=== PATIENT | female | born 1960 | race Caucasian/White ===

== ENCOUNTER → 2016-12-17 | Outpatient (CLI) | payer MEDICARE, OTHER ==
[~2016-12-17] MED LIST: ACETAMINOPHEN325 MG PO; ADVAIR 100-501 EAC1 IH; ADVAIR 100-501 EACH IH; ADVAIR 100-501 EACH INH; ADVAIR 1001 DISK W/D PO; ADVAIR 250-501 EAC1 IH; ADVAIR 5001 DISK W/2 IH; ALBUTEROL MININEB NEB; ALBUTEROL0.83 MG/ML IH; ALBUTEROL17 GM INH; ALLERCLEAR10 MG PO; ALLERGY RELIEF10 M1 PO; ALPRAZOLAM PO; ANTACID650 MG PO; ARTIFICIAL TEAR1 DRP OU; ATIVAN0.5 M1 PO; ATORVASTATIN CA10 MG PO; AUGMENTIN PO; AUGMENTIN875 MG PO; BACTRIM DS TABL1 TAB PO; BENZONATATE PO; CALCIUM CARBONA1 TAB PO; CALCIUM1 TAB.CHEW; CLARITIN10 M1 PO; CLARITIN10 M2 PO; CLARITIN10 M3 PO; CLEOCIN PO; CLONAZEPAM0.5 MG PO; CLOPIDOGREL75 MG PO; COGENTIN0.5 M1 PO; COGENTIN0.5 MG PO; COGENTIN1 MG PO; COLACE PO; DEPAKOTE; DEPAKOTE ER PO; DEPAKOTE PO; DEXILANT30 MG PO; DEXILANT60 MG PO; DUONEB 2.5-0.5 M3 ML NEB; FENTANYL1 PATCH .7 TOP; FERREX 150 FOR1 EACH PO; FLORASTORKIDS250 MG PO; FOLIC ACID PO; FOLIC ACID1 MG PO; FUROSEMIDE40 MG PO; GABAPENTIN300 M2 PO; GABAPENTIN300 MG PO; GUAIFENESIN W/CO5 ML PO; HYDROCHLOROTH12.5 M1 PO; HYDROCHLOROTH12.5 MG PO; HYDROCHLOROTHIA25 MG PO; HYDROCODON-ACE1 EAC1 PO; HYDROCODON-ACE1 EAC5 PO; HYDROCODON-ACE1 EAC7 PO; HYDROCODONE-A1 UDTA2 PO; JANUVIA PO; K-DUR20 ME1 PO; KAPIDEX30 MG PO; KEFLEX PO; KLONOPIN0.25 MG/TA PO; KLONOPIN0.5 MG PO; LASIX PO; LASIX20 MG PO; LEVOTHROID50 MCG PO; LEVOTHROID75 MCG PO; LEVOTHYROXINE50 MCG PO; LIDODERM30 EA TOP; LIPITOR PO; LIPITOR20 MG PO; LISINOPRIL PO; LISINOPRIL10 MG PO; LOPRESSOR PO; LORTAB 5/500 TA1 TA1 PO; MELATIN3 MG PO; MELATONIN1 M1 PO; METHOCARBAMOL500 MG PO; METHOTREXATE PO; METHOTREXATE2.5 MG PO; METHOTREXATE25 MG/M3 PO; METOPROLOL TAR25 MG PO; MINTOX MAXIMUM355 ML PO; MOBIC PO; MOBIC7.5 MG/5 M PO; MS CONTIN PO; MSIR15 MG PO; MULTI VITAMIN1 EACH PO; NAPROXEN PO; NEURONTIN PO; NIFEREX-150 FO150 MG PO; NORCO 10-325 TA1 TAB PO; NUEDEXTA 20-101 EACH PO; OMEPRAZOLE10 MG PO; OMEPRAZOLE20 M2 PO; OXAPROZIN600 MG PO; OXYCODONE HCL20 M1 PO; PANTOPRAZOLE SO40 MG PO; PAROXETINE HCL40 M1 PO; PATIENT'S PHARMACY; PAXIL30 MG PO; PERCOCET 10/3251 TAB PO; PERCOCET 5-3251 TAB PO; PERCOCET10 PO; PERCOCET5/325 PO; PHENERGAN25 M1 PO; PHENERGAN25 MG PO; PLAVIX PO; POTASSIUM CHLO10 ME1 PO; POTASSIUM CHLO10 MEQ PO; PREDNISONE PO; PRILOSEC PO; PRILOSEC20 M1 PO; PRILOSEC20 MG DOB; PROAIR HFA8.5 GM IH; PROVENTIL0.83 MG/ML IH; REMERON PO; REMERON15 MG PO; ROBITUSSIN A-C S5 ML PO; ROBITUSSIN100 MG/52 PO; SENOKOT S1 TA1 PO; SENOKOT S1 TAB PO; SEROQUEL PO; SEROQUEL XR150 MG PO; SEROQUEL50 M1 PO; SEROQUEL50 MG PO; SERTRALINE HCL100 M1 PO; SERTRALINE HCL100 MG PO; SILVADENE TOP; SIMVASTATIN20 MG PO; SINGULAIR PO; SODIUM BICARBO650 MG PO; SYMBICORT INH; SYMBICORT80 INH; SYNTHROID75 MCG PO; TEMAZEPAM30 MG; TESSALON PERLE100 M1 PO; THERAGRAN-M PRE1 TAB PO; THERAPEUTIC M PO; TOPIRAMATE100 MG PO; TRADJENTA5 MG PO; TREXALL10 MG PO; TREXALL5 MG PO; TREXALL7.5 MG PO; TUMS500 MG PO; TYL325 PO; TYLOX 5/500 CAP1 CAP PO; VISTARIL PO; VITAMIN C500 MG PO; VITAMIN D 22000 UNIT PO; VITAMIN D-32000 UNI1 PO; VITAMIN D2000 UNI1 PO; VITAMIN D22000 UNIT PO; VITAMIN D2400 UNIT PO; VITAMIN D31000 UNI1 PO; VITAMIN D31000 UNIT PO; VITAMIN E PO; VITAMIN E400 UNI1 PO; VOLTAREN75 MG PO; ZOCOR20 MG PO; ZOFRAN PO; ZOLOFT PO; ZOLOFT50 MG PO; ZYPREXA PO; ZYPREXA7.5 MG PO; [UNRECOGNIZED DRUG - OTHER] INH
--- NOTE | ~2016-12-17 | CT57 ---
[facility] A Service of [facility] RADIOLOGY TEXT RESULTS PATIENT: JESÚS SALVADOR LOCATION: [facility] : 56 UNIT #: [id number] AGE: [address]: So Solis MD SEX: F ORDER DR: [id number] [facility] [address] [place], [place] [address] [id number] O MR#: [id number] [facility] #: [id number] NAME: JESÚS SALVADOR : 1960 SEX: F STUDY DATE/TIME: 12/17/2016 14:58 UNIT: [facility] ROOM: STUDY DESCRIPTION: CT Chest Wo Cont Attending Physician: So Solis M.D. Referring Physician: So Solis M.D. Ordering Physician: So Solis M.D. Primary Care Physician: So Solis M.D. MEDICAL IMAGING REPORT This report is preliminary unless electronic signature is present EXAM CT of the chest without contrast. INDICATION 56-year-old female with a history of cough for [address] of the chest was performed without contrast. Coronal and sagittal reformatted images obtained. This CT exam was performed with one or more of the following radiation dose reduction techniques: automatic exposure control, adjustment of mA and/or kV according to patient size, and iterative reconstruction. COMPARISON STUDIES Comparison with 07/10/2012. FINDINGS There is diffuse tree-in-bud nodularity throughout the right lower lobe. There is band-like atelectasis or scar in the right middle lobe and minimal bandlike atelectasis or scar in the right lower lobe. There is band-like atelectasis within the left lower lobe and some scattered tree-in-bud nodularity in the left lower lobe. No obvious suspicious lymphadenopathy. However, the upper mediastinum is obscured by streak artifact from the patient's shoulder arthroplasties. There is a moderate sized hiatal hernia. Limited imaging in the upper abdomen demonstrates a cholecystectomy. There are nonobstructing stones within the left kidney. Bone windows demonstrate degenerative change thoracic spine, postop changes cervical spine, and bilateral shoulder arthroplasties. IMPRESSION [facility] A Service of [facility] RADIOLOGY TEXT RESULTS PATIENT: JESÚS SALVADOR LOCATION: [facility] : 56 UNIT #: [id number] AGE: [address]: So Solis MD SEX: F ORDER DR: 1. There is bilateral lower lobe tree-in-bud nodularity greater on the right and more diffuse on the right. Findings are most suggestive of infectious or inflammatory small airways disease process. Recommend a short interval followup chest CT in [id number] months to document clearing. 2. There are areas of atelectasis/scarring in both lung bases. Dictated by... Ravinder Mcneil M.D. THIS IS AN ELECTRONICALLY VERIFIED REPORT Ravinder Mcneil M.D. at 12/18/2016 4:28 PM THIERRY/mercy TD: 12/18/2016 09:37 JOB #: [id number] MEDICAL IMAGING REPORT Page 1 of 1 COPY
[2016-12-17 16:51] LABS: POC - CREATININE 1.3 mg/dL (0.44-1.03)
== END | disposition home or self-care (01) ==
LOC: CCAT 14:18
PROVIDERS: Family Medicine
DX: R93.8 Abnormal findings on diagnostic imaging of other specified body structures (principal); R91.8 Other nonspecific abnormal finding of lung field
CPT/HCPCS: 71250; 82565